=== PATIENT | male | born 1930 | race Caucasian/White ===

== ENCOUNTER 2018-02-08 14:48 | Emergency (ER) | payer MEDICARE, OTHER ==
[2018-02-08 15:22] LABS: Glucose,Whole Blood 119 mg/dL (75-99)
[2018-02-08 15:31] LABS: Basophils % (A) 0 %; Eosinophils # (A) 0.2 k/uL (0-0.7); Eosinophils % (A) 2 %; HCT 47.4 % (39.0-53.0); HGB 14.8 gm/dL (13.0-17.5); Lymphocytes # (A) 2.3 k/uL (1.0-4.8); Lymphocytes % (A) 30 %; MCH 29.2 pg (25.0-35.0); MCHC 31.2 g/dL (31.0-37.0); MCV 93.5 fL (80.0-100.0); Mean Platelet Volume 8.3; Monocytes # (A) 0.6 k/uL (0-1.0); Monocytes % (A) 7 %; Neutrophils # (A) 4.5 k/uL (1.3-7.7); Neutrophils % (A) 58 %; Platelet Count 172 k/uL (150-450); RBC 5.07 m/uL (4.30-5.90); RDW 13.1 % (11.5-15.5); WBC 7.8 k/uL (3.8-10.6)
[2018-02-08 15:44] LABS: Albumin 4.6 g/dL (3.5-5.0); Calcium 9.6 mg/dL (8.4-10.2); Total Bilirubin 1.2 mg/dL (0.2-1.3); Total Protein 7.6 g/dL (6.3-8.2)
--- NOTE | 2018-02-08 15:45 | ED ---
General Adult HPI - General Chief complaint: Neuro Symptoms/Deficit Stated complaint: Poss CVA Time Seen by Provider: 02/08/18 14:54 Source: patient, RN notes reviewed, old records reviewed Mode of arrival: wheelchair Limitations: no limitations - History of Present Illness Initial comments: 87-year-old male presenting for evaluation of left upper extremity and left lower extremity weakness as well as some gait instability. Patient is accompanied by his . She states that at approximately 1 PM the patient developed left arm weakness and tremor. This progressed to left lower extremity weakness along with gait instability. Patient nearly fell although his prevented him from full collapse. Patient denies any headache. Denies any numbness or paresthesias. 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 History of coronary artery disease status post bypass. He is currently on a daily aspirin. No anticoagulation. Denies any preceding symptoms prior to 1:00 today. Denies fever or chills. Denies chest pain or shortness of breath. Denies cough. Denies abdominal pain nausea vomiting. Symptoms are resolved at the time of my evaluation. - Related Data Home Medications Medication Instructions Recorded Confirmed Escitalopram [Lexapro] 10 mg PO HS 03/30/15 02/08/18 Losartan/Hydrochlorothiazide 1 tab PO HS 03/30/15 02/08/18 [Losartan-Hctz 50-12.5 mg Tab] Aspirin EC [Ecotrin] 325 mg PO HS 02/08/18 02/08/18 Atorvastatin [Lipitor] 40 mg PO HS 02/08/18 02/08/18 Multivitamins, Thera [Multivitamin 1 tab PO HS 02/08/18 02/08/18 (formulary)] Allergies Allergy/AdvReac Type Severity Reaction Status Date / Time No Known Allergies Allergy Verified 02/08/18 15:22 Review of Systems ROS Statement: Those systems with pertinent positive or pertinent negative responses have been documented in the HPI. ROS Other: All systems not noted in ROS Statement are negative. Past Medical History Past Medical History: Coronary Artery Disease (CAD), Cancer, CVA/TIA, Hearing Disorder / Deafness, Hyperlipidemia, Hypertension, Memory Impairment, Osteoarthritis (OA), Prostate Disorder, Skin Disorder Additional Past Medical History / Comment(s): per past medical hx 2013 hx cva/ tia unk date, skin cancer , CAD status post CABG as well as a left heart catheter physician 2013 that was nonobstructive, hypertension and hypertensive cardio vascular disease, hyperlipidemia, benign prostatic hypertrophy, vascular dementia, vitamin D deficiency, impotence of organic origin, dry skin, hypogonadism, major depressive disorder. History of Any Multi-Drug Resistant Organisms: None Reported Past Surgical History: Coronary Bypass/CABG Additional Past Surgical History / Comment(s): triple cagb 1999, heart cath 2013 -tx medically, leobardo cataracats, skin ca removed Past Anesthesia/Blood Transfusion Reactions: No Reported Reaction Past Psychological History: No Psychological Hx Reported Smoking Status: Former smoker Past Alcohol Use History: None Reported Past Drug Use History: None Reported - Past Family History Father Family Medical History: Dementia (Father at age of 82 from dementia) Mother Family Medical History: Cancer (Mother at age of 50 from some sort of cancer) Brother(s) Family Medical History: No Reported History (Patient had one brother who at age of 91 from old age) Sister(s) Family Medical History: Dementia (Patient has 2 sisters one of them is alive and well the other one from Alzheimer dementia.) General Exam Limitations: no limitations General appearance: alert, in no apparent distress Head exam: Present: atraumatic, normocephalic Eye exam: Present: other (Right pupil is irregular status post cataract surgery , left eye with corneal clouding and pupillary irregularity.) ENT exam: Present: normal exam Neck exam: Present: normal inspection. Absent: tenderness, meningismus Respiratory exam: Present: normal lung sounds bilaterally. Absent: respiratory distress, wheezes, rales Cardiovascular Exam: Present: regular rate, normal rhythm GI/Abdominal exam: Present: soft. Absent: distended, tenderness, guarding Extremities exam: Present: normal inspection Neurological exam: Present: alert, oriented X3, CN II-XII intact, normal gait, other (NIH 0). Absent: motor sensory deficit Psychiatric exam: Present: normal affect, normal mood Skin exam: Present: warm, dry, intact. Absent: cyanosis, diaphoretic Course Vital Signs 02/08/18 14:50 Temperature 98.2 F Pulse Rate 63 Respiratory 20 Rate Blood Pressure 142/69 O2 Sat by Pulse 97 Oximetry EKG Findings - EKG Comments: EKG Findings:: EKG: Sinus rhythm with sinus arrhythmia occasional PVC, no ST segment elevatio, rate of 60, [place] interval 206, QRS duration 88, QTC 400. Medical Decision Making - Medical Decision Making 87-year-old male presenting with left arm and left leg weakness. This was resolved at the time my evaluation. Symptoms were consistent with TIA. Patient does have history of TIA and CVA in the past. Head CT is obtained, shows bifrontal encephalomalacia and old lacunar infarcts, no intracranial hemorrhage or acute cranial process. Chest x-ray is negative, CBC, CMP unremarkable. Patient is instructed that these symptoms are likely related to TIA, he is informed that workup would include possible inpatient evaluation by neurology, ultrasound of the neck and heart. Patient is informed of the possibility that these symptoms may worsen. Despite this patient prefers outpatient follow-up. He is alert and oriented, his 's present. They are both agreeable with plan. He is already on aspirin, he will continue to take this medication. He will return with worsening or changing symptoms. He is given outpatient neurology follow-up. Diagnosis: TIA - Lab Data Result diagrams: 02/08/18 15:08 02/08/18 15:08 Lab Results 02/08/18 02/08/18 02/08/18 Range/Units 15:06 15:08 15:08 WBC 7.8 (3.8-10.6) k/uL RBC 5.07 (4.30-5.90) m/uL Hgb 14.8 (13.0-17.5) gm/dL Hct 47.4 (39.0-53.0) % MCV 93.5 (80.0-100.0) fL MCH 29.2 (25.0-35.0) pg MCHC 31.2 (31.0-37.0) g/dL RDW 13.1 (11.5-15.5) % Plt Count 172 (150-450) k/uL Neutrophils % 58 % Lymphocytes % 30 % Monocytes % 7 % Eosinophils % 2 % Basophils % 0 % Neutrophils # 4.5 (1.3-7.7) k/uL Lymphocytes # 2.3 (1.0-4.8) k/uL Monocytes # 0.6 (0-1.0) k/uL Eosinophils # 0.2 (0-0.7) k/uL Basophils # 0.0 (0-0.2) k/uL PT (9.0-12.0) sec INR (<1.2) APTT (22.0-30.0) sec Sodium (137-145) mmol/L Potassium (3.5-5.1) mmol/L Chloride (98-107) mmol/L Carbon Dioxide (22-30) mmol/L Anion Gap mmol/L BUN (9-20) mg/dL Creatinine (0.66-1.25) mg/dL Est GFR (CKD-EPI)AfAm (>60 ml/min/1.73 sqM) Est GFR (CKD-EPI)NonAf (>60 ml/min/1.73 sqM) Glucose (74-99) mg/dL POC Glucose (mg/dL) 119 H (75-99) mg/dL POC Glu Electrical Systems Designer ID Deanne Alvarez Calcium (8.4-10.2) mg/dL Total Bilirubin (0.2-1.3) mg/dL AST (17-59) U/L ALT (21-72) U/L Alkaline Phosphatase (38-126) U/L Total Creatine Kinase 67 (55-170) U/L CK-MB (CK-2) 1.3 (0.0-2.4) ng/mL CK-MB (CK-2) Rel Index 1.9 Troponin I 0.023 (0.000-0.034) ng/mL Total Protein (6.3-8.2) g/dL Albumin (3.5-5.0) g/dL 02/08/18 02/08/18 Range/Units 15:08 15:08 WBC (3.8-10.6) k/uL RBC (4.30-5.90) m/uL Hgb (13.0-17.5) gm/dL Hct (39.0-53.0) % MCV (80.0-100.0) fL MCH (25.0-35.0) pg MCHC (31.0-37.0) g/dL RDW (11.5-15.5) % Plt Count (150-450) k/uL Neutrophils % % Lymphocytes % % Monocytes % % Eosinophils % % Basophils % % Neutrophils # (1.3-7.7) k/uL Lymphocytes # (1.0-4.8) k/uL Monocytes # (0-1.0) k/uL Eosinophils # (0-0.7) k/uL Basophils # (0-0.2) k/uL PT 10.9 (9.0-12.0) sec INR 1.1 (<1.2) APTT 22.5 (22.0-30.0) sec Sodium 141 (137-145) mmol/L Potassium 5.0 (3.5-5.1) mmol/L Chloride 106 (98-107) mmol/L Carbon Dioxide 22 (22-30) mmol/L Anion Gap 13 mmol/L BUN 24 H (9-20) mg/dL Creatinine 0.94 (0.66-1.25) mg/dL Est GFR (CKD-EPI)AfAm 84 (>60 ml/min/1.73 sqM) Est GFR (CKD-EPI)NonAf 73 (>60 ml/min/1.73 sqM) Glucose 120 H (74-99) mg/dL POC Glucose (mg/dL) (75-99) mg/dL POC Glu Electrical Systems Designer ID Calcium 9.6 (8.4-10.2) mg/dL Total Bilirubin 1.2 (0.2-1.3) mg/dL AST 41 (17-59) U/L ALT 24 (21-72) U/L Alkaline Phosphatase 75 (38-126) U/L Total Creatine Kinase (55-170) U/L CK-MB (CK-2) (0.0-2.4) ng/mL CK-MB (CK-2) Rel Index Troponin I (0.000-0.034) ng/mL Total Protein 7.6 (6.3-8.2) g/dL Albumin 4.6 (3.5-5.0) g/dL Disposition Clinical Impression: Transient cerebral ischemia Disposition: HOME SELF-CARE Condition: Fair Instructions: Transient Ischemic Attack (ED) Additional Instructions: Please continue aspirin at home. Follow-up with primary care physician and neurology. Please return with worsening or changing symptoms. Is patient prescribed a controlled substance at d/c from ED?: No Referrals: Shanika Tiwari MD [Primary Care Provider] - 1-2 days Terese Chahal MD [STAFF PHYSICIAN] - 1-2 days Time of Disposition: 16:35
--- NOTE | 2018-02-08 15:46 | CT ---
EXAMINATION TYPE: CT brain wo con DATE OF EXAM: 02/08/2018 COMPARISON: 03/30/2015 HISTORY: Left sided weakness CT DLP: 1108.4 mGycm Automated exposure control for dose reduction was used. FINDINGS: There is bifrontal encephalomalacia with volume loss of the peripheral sulci. Left-sided encephalomal acia is new from the prior. Old lacunar injury seen of the left lentiform nucleus is present on the p rior. Right-sided basal ganglia calcifications are noted. No evidence of acute intracranial hemorrhag e, midline shift or mass effect. No suspicious extra-axial fluid collection. Osseous calvarium appear s intact with mild mucosal thickening of the left atrophic maxillary sinus. IMPRESSION: BIFRONTAL ENCEPHALOMALACIA FROM PRIOR INJURY AND OLD LACUNAR INJURIES. NO ACUTE INTRACRANIAL PROCESS.
--- NOTE | 2018-02-08 15:47 | XR ---
EXAMINATION TYPE: XR chest 2V DATE OF EXAM: 02/08/2018 COMPARISON: 09/02/2013 HISTORY: Altered mental status TECHNIQUE: Frontal and lateral views of the chest are obtained. FINDINGS: There is no focal air space opacity, pleural effusion, or pneumothorax seen. Post CABG kizzy nges of the chest are seen with cardiac enlargement. Pulmonary hyperinflation suggests underlying CO PD. Mild multilevel degenerative changes of the thoracic spine are noted. Osseous demineralization is seen. The osseous structures are intact. IMPRESSION: Chronic findings with no acute cardiopulmonary process.
[2018-02-08 16:07] LABS: Creatine Kinase MB 1.3 ng/mL (0.0-2.4); Troponin I 0.023 ng/mL (0.000-0.034)
[2018-02-08 16:18] LABS: INR 1.1 (<1.2); Partial Thromboplastin Time 22.5 sec (22.0-30.0); Prothrombin Time 10.9 sec (9.0-12.0)
[2018-02-08 16:50] VITALS: BP 122/72; PULSE 96; RESP 18; TEMP 98.5
== END 2018-02-08 16:48 | disposition home or self-care (01) ==
LOC: EC 14:48
DX: G45.9 Transient cerebral ischemic attack, unspecified (principal); G93.89 Other specified disorders of brain; I25.10 Atherosclerotic heart disease of native coronary artery without angina pectoris; E78.5 Hyperlipidemia, unspecified; I11.9 Hypertensive heart disease without heart failure; E55.9 Vitamin D deficiency, unspecified; F32.9 Major depressive disorder, single episode, unspecified; Z85.828 Personal history of other malignant neoplasm of skin; Z86.73 Personal history of transient ischemic attack (TIA), and cerebral infarction without residual deficits; Z95.1 Presence of aortocoronary bypass graft; Z95.818 Presence of other cardiac implants and grafts; Z87.891 Personal history of nicotine dependence; Z79.82 Long term (current) use of aspirin; Z79.899 Other long term (current) drug therapy
CPT/HCPCS: 36415; 70450; 71046; 80053; 82550; 82553; 84484; 85025; 85610; 85730; 93005; 99285

== ENCOUNTER → 2018-02-21 | Outpatient (CLI) | payer MEDICARE, OTHER ==
--- NOTE | 2018-02-21 08:12 | US ---
EXAMINATION TYPE: US carotid duplex BILAT DATE OF EXAM: 02/21/2018 COMPARISON: US 2014 CLINICAL HISTORY: G45.9 TIA. TIA, loss of vision in left eye. EXAM MEASUREMENTS: RIGHT: Peak Systolic Velocity (PSV) cm/sec ----- Right CCA: 72.2 ----- Right ICA: 100.7 ----- Right ECA: 122.8 ICA/CCA ratio: 1.4 RIGHT: End Diastole cm/sec ----- Right CCA: 13.9 ----- Right ICA: 26.5 ----- Right ECA: 0.0 LEFT: Peak Systolic Velocity (PSV) cm/sec ----- Left CCA: 82.6 ----- Left ICA: 123.4 ----- Left ECA: 121.8 ICA/CCA ratio: 1.5 LEFT: End Diastole cm/sec ----- Left CCA: 16.6 ----- Left ICA: 33.9 ----- Left ECA: 0.0 VERTEBRALS (direction of flow): Right Vertebral: Antegrade Left Vertebral: Antegrade Rhythm: Normal Bilateral intimal thickening, plaque bilateral bulb greater on right side, no elevated velocities, no significant stenosis. IMPRESSION: Mild degree of grayscale atheromatous plaquing with no sonographically evident hemodynam ically significant stenosis within either visualized carotid arterial system. The previously seen c ardiac arrhythmia 2014 is not appreciated on today's examination.
--- NOTE | 2018-02-21 08:32 | MR ---
EXAMINATION TYPE: MR brain wo/w con DATE OF EXAM: 02/21/2018 COMPARISON: CT brain 02/08/2018 HISTORY: Memory loss CONTRAST: Performed utilizing 7.5 mL intravenous Gadavist gadolinium contrast. TECHNIQUE: Multiplanar, multiecho imaging on a 3.0 Melanie magnet is performed through the brain. Stud y is performed within 24 hours of arrival to the hospital. The craniovertebral junction is normal. The pituitary is normal. Diffusion-weighted imaging is performed. No abnormal hyperintensity is present to suggest an acute i ntracranial infarct or acute ischemic change. Bilateral frontal parietal lobe watershed infarcts are present. These appear chronic. There is conflu ent periventricular white matter hypodensity, likely microvascular ischemic change.. Infarct or prior ischemic changes likely present as well. There is an irregular enhancing lesion within the superior left cerebellum. Series 602, image 10, ser ies 601 image 53. This measures approximately 1.1 x 0.8 cm. Metastatic lesion should be considered. P rimary lesion is not excluded. Diffusion-weighted imaging is hypointense in this region and infarct i s unlikely. Solitary multiple sclerosis would be unlikely.. No additional enhancing lesions are evide nt. Ventricles and sulci are prominent for the patient age. Mucosal retention cysts are within the left maxillary sinus. Mild mucosal thickening within ethmoid a ir cells. IMPRESSIONS: 1. Enhancing lesion within the superior left cerebellum. Evaluate for metastasis. Diffusion imaging s uggests infarct to be unlikely. 2. Chronic frontal parietal watershed infarcts bilaterally. 3. Periventricular white matter ischemic type changes. 4. Atrophy A Lynx level critical message alert has been initiated for Shanika Tiwari MD via the [employer] Critical Results System on 02/21/2018 8:29 AM. This message alert has been sent to Shanika Tiwari MD via the preferences provided by the clinician for the receipt of Radiology Critical Findings. Message ID [id number].
== END | disposition home or self-care (01) ==
LOC: RADMRIMAIN 06:45
PROVIDERS: ATTEND Internal Medicine
DX: G31.9 Degenerative disease of nervous system, unspecified (principal); I67.82 Cerebral ischemia; G93.89 Other specified disorders of brain; I65.29 Occlusion and stenosis of unspecified carotid artery
CPT/HCPCS: 93880; 70553; A9581

== ENCOUNTER → 2018-03-07 | Outpatient (CLI) | payer MEDICARE, OTHER ==
--- NOTE | 2018-03-08 11:50 | CT ---
EXAMINATION TYPE: CT ChestAbdPelvis wo/w con DATE OF EXAM: 03/07/2018 COMPARISON: Brain MR 02/21/[address] brain 02/08/2018 HISTORY: Disorder of brain and altered mental status, abnormal prior imaging study CT DLP: 3160 mGycm Automated exposure control for dose reduction was used. CONTRAST: CT scan of the chest, abdomen and pelvis is performed with Oral Contrast and without and with IV Cont rast, patient injected with 100 mL of Isovue 300. FINDINGS: Findings on the brain MRI are questioned as there is no direct axial pre and post contrast scan performed, precontrast scans correlated only with a sagittal T1 weighted image. There is suggest ion on the sagittal image of some increased signal at this level. No additional abnormal enhancing le sions are identified within the brain. LUNGS: Some interstitial changes are present within the lungs. No evident lung mass or pneumonia, no pleural effusion or pneumothorax. MEDIASTINUM: There are no greater than 1 cm hilar or mediastinal lymph nodes. No pericardial effusi on is seen. Coronary artery calcifications are present. Calcification is present at the aortic root. Patient is post median sternotomy. AORTA: No significant abnormality is seen. OTHER: No additional significant abnormality is seen. LIVER/GB: No significant abnormality is appreciated. PANCREAS: No significant abnormality is seen. SPLEEN: Hypodensity within the spleen measures 8 mm and is of questionable clinical significance. ADRENALS: No significant abnormality is seen. KIDNEYS: No significant abnormality is seen. REPRODUCTIVE ORGANS: The prostate is enlarged.. BOWEL: No significant abnormality is seen. Possible small hiatal hernia. FREE AIR: No Free Air visible. ASCITES: None seen. RETROPERITONEAL ADENOPATHY: No retroperitoneal adenopathy is seen. LYMPH NODES: No greater than 1 cm abdominal or pelvic lymph nodes are appreciated. URINARY BLADDER: There is a thickened wall likely due to chronic outlet obstruction. PELVIC ADENOPATHY: None visualized. OSSEOUS STRUCTURES: No significant abnormality is seen. Facet arthropathy, degenerative disc changes are present in the visualized spine. IMPRESSION: No abnormality evident to account for patient's brain abnormality, consider precontrast M RI axial scan through the brain for better evaluation as discussed above versus short interval follow -up. Additional findings above.
== END | disposition home or self-care (01) ==
LOC: RADCTMAIN 14:58
PROVIDERS: ATTEND Internal Medicine
DX: R91.8 Other nonspecific abnormal finding of lung field (principal); G93.9 Disorder of brain, unspecified
CPT/HCPCS: 82565; 84520; 71270; 74178; 36415; Q9967

== ENCOUNTER → 2018-07-03 | Outpatient (CLI) | payer MEDICARE, OTHER ==
[2018-07-03 16:11] LABS: LDL Cholesterol,Calculated 34.6 mg/dL (0.0-131.0); VLDL Calculation 12.4 mg/dL (5.00-40.00)
== END | disposition home or self-care (01) ==
LOC: LABWHC1 10:35
PROVIDERS: ATTEND Psychiatry & Neurology Pain Medicine
DX: I63.9 Cerebral infarction, unspecified (principal)
CPT/HCPCS: 36415; 80061

== ENCOUNTER 2019-04-25 07:09 | Emergency (ER) | payer MEDICARE, OTHER ==
[2019-04-25 07:19] VITALS: RESP 18
[2019-04-25 07:32] LABS: Glucose,Whole Blood 100 mg/dL (75-99)
[2019-04-25 07:59] LABS: ALT 25 U/L (21-72); AST 29 U/L (17-59); African American GFR (CKD) 65 (>60 ml/min/1.73 sqM); Albumin 4.2 g/dL (3.5-5.0); Alcohol <10 mg/dL; Alkaline Phosphatase 99 U/L (38-126); Anion Gap 12 mmol/L; Blood Urea Nitrogen 26 mg/dL (9-20); Calcium 9.4 mg/dL (8.4-10.2); Carbon Dioxide 27 mmol/L (22-30); Chloride 103 mmol/L (98-107); Creatine Kinase 437 U/L (55-170); Glucose 103 mg/dL (74-99); Magnesium 1.9 mg/dL (1.6-2.3); Potassium 3.9 mmol/L (3.5-5.1); Sodium 142 mmol/L (137-145); Total Bilirubin 0.7 mg/dL (0.2-1.3); Total Protein 7.1 g/dL (6.3-8.2)
--- NOTE | 2019-04-25 08:01 | ED ---
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 Patient himself states that he was dreaming that he was trapped and inability was going to be blown up. He states he was trying to escape sway wouldn't get caught in the [place]. He was brought in by police his was not currently present. No reports of any trauma no other information available at the time of the initial evaluation. MD Complaint: altered mental status, confusion - Related Data Home Medications Medication Instructions Recorded Confirmed Losartan/Hydrochlorothiazide 1 tab PO HS 03/30/15 04/25/19 [Losartan-Hctz 50-12.5 mg Tab] Multivitamins, Thera [Multivitamin 1 tab PO HS 02/08/18 04/25/19 (formulary)] Atorvastatin [Lipitor] 40 mg PO HS 04/25/19 04/25/19 Clopidogrel Bisulfate [Plavix] 75 mg PO HS 04/25/19 04/25/19 Donepezil [Aricept] 5 mg PO HS 04/25/19 04/25/19 Escitalopram [Lexapro] 10 mg PO HS 04/25/19 04/25/19 Allergies Allergy/AdvReac Type Severity Reaction Status Date / Time No Known Allergies Allergy Verified 04/25/19 08:51 Review of Systems ROS Statement: Those systems with pertinent positive or pertinent negative responses have been documented in the HPI. ROS Other: All systems not noted in ROS Statement are negative. Limitations: ROS unobtainable due to patients medical condition Past Medical History Past Medical History: Coronary Artery Disease (CAD), Cancer, CVA/TIA, Hearing Disorder / Deafness, Hyperlipidemia, Hypertension, Memory Impairment, Osteoarthritis (OA), Prostate Disorder, Skin Disorder Additional Past Medical History / Comment(s): per past medical hx 2013 hx cva/tia unk date, skin cancer 09, CAD status post CABG as well as a left heart catheter physician 2013 that was nonobstructive, hypertension and hypertensive cardio vascular disease, hyperlipidemia, benign prostatic hypertrophy, vascular dementia, vitamin D deficiency, impotence of organic origin, dry skin, hypogonadism, major depressive disorder. History of Any Multi-Drug Resistant Organisms: None Reported Past Surgical History: Coronary Bypass/CABG Additional Past Surgical History / Comment(s): triple cagb 1999, heart cath 2013 -tx medically, leobardo cataracats, skin ca removed Past Anesthesia/Blood Transfusion Reactions: No Reported Reaction Past Psychological History: No Psychological Hx Reported Smoking Status: Former smoker Past Alcohol Use History: None Reported Past Drug Use History: None Reported - Past Family History Father Family Medical History: Dementia (Father at age of 82 from dementia) Mother Family Medical History: Cancer (Mother at age of 50 from some sort of cancer) Brother(s) Family Medical History: No Reported History (Patient had one brother who at age of 91 from old age) Sister(s) Family Medical History: Dementia (Patient has 2 sisters one of them is alive and well the other one from Alzheimer dementia.) General Exam - General Exam Comments Initial Comments: This is a well-developed well-nourished awake alert pleasant female who does demonstrate some flight of ideas he is aware of person place and time Limitations: altered mental status General appearance: alert, in no apparent distress Head exam: Present: atraumatic, normocephalic, normal inspection Eye exam: Present: normal appearance, PERRL, EOMI. Absent: scleral icterus, conjunctival injection, periorbital swelling ENT exam: Present: mucous membranes dry Neck exam: Present: normal inspection. Absent: tenderness, meningismus, lymphadenopathy Respiratory exam: Present: normal lung sounds bilaterally. Absent: respiratory distress, wheezes, rales, rhonchi, stridor Cardiovascular Exam: Present: regular rate, normal rhythm, normal heart sounds. Absent: systolic murmur, diastolic murmur, rubs, gallop, clicks GI/Abdominal exam: Present: soft, normal bowel sounds. Absent: distended, tenderness, guarding, rebound, rigid Extremities exam: Present: normal inspection, full ROM, normal capillary refill. Absent: tenderness, pedal edema, joint swelling, calf tenderness Back exam: Present: normal inspection Neurological exam: Present: alert, oriented X3, CN II-XII intact Psychiatric exam: Present: normal affect, normal mood Skin exam: Present: warm, dry, intact, normal color. Absent: rash Course Vital Signs 04/25/19 04/25/19 07:14 08:44 Temperature 97.6 F 98.2 F Pulse Rate 86 62 Respiratory 18 18 Rate Blood Pressure 162/70 124/70 O2 Sat by Pulse 96 97 Oximetry - Reevaluation(s) Reevaluation #1: 04/25/19 09:57 Patient's resting comfortably he is medically cleared for a psychiatric evaluation. Medical Decision Making - Medical Decision Making Patient was evaluated by psychiatric service and will be discharged with referrals. Recommendations for changing medication from Lexapro to valproic acid. The family is in agreement - Lab Data Result diagrams: 04/25/19 07:30 04/25/19 07:30 Lab Results 04/25/19 04/25/19 04/25/19 Range/Units 07:30 07:30 07:30 WBC (3.8-10.6) k/uL RBC (4.30-5.90) m/uL Hgb (13.0-17.5) gm/dL Hct (39.0-53.0) % MCV (80.0-100.0) fL MCH (25.0-35.0) pg MCHC (31.0-37.0) g/dL RDW (11.5-15.5) % Plt Count (150-450) k/uL Neutrophils % % Lymphocytes % % Monocytes % % Eosinophils % % Basophils % % Neutrophils # (1.3-7.7) k/uL Lymphocytes # (1.0-4.8) k/uL Monocytes # (0-1.0) k/uL Eosinophils # (0-0.7) k/uL Basophils # (0-0.2) k/uL Sodium 142 (137-145) mmol/L Potassium 3.9 (3.5-5.1) mmol/L Chloride 103 (98-107) mmol/L Carbon Dioxide 27 (22-30) mmol/L Anion Gap 12 mmol/L BUN 26 H (9-20) mg/dL Creatinine 1.16 (0.66-1.25) mg/dL Est GFR (CKD-EPI)AfAm 65 (>60 ml/min/1.73 sqM) Est GFR (CKD-EPI)NonAf 56 (>60 ml/min/1.73 sqM) Glucose 103 H (74-99) mg/dL POC Glucose (mg/dL) 100 H (75-99) mg/dL POC Glu Photostatic Copy Maker ID Brandi Triplett Calcium 9.4 (8.4-10.2) mg/dL Magnesium 1.9 (1.6-2.3) mg/dL Total Bilirubin 0.7 (0.2-1.3) mg/dL AST 29 (17-59) U/L ALT 25 (21-72) U/L Alkaline Phosphatase 99 (38-126) U/L Ammonia <9 (<30) umol/L Creatine Kinase 437 H (55-170) U/L Troponin I (0.000-0.034) ng/mL Total Protein 7.1 (6.3-8.2) g/dL Albumin 4.2 (3.5-5.0) g/dL Lipase 239 (23-300) U/L Urine Color Urine Appearance (Clear) Urine pH (5.0-8.0) Ur Specific [place] (1.001-1.035) Urine Protein (Negative) Urine Glucose (UA) (Negative) Urine Ketones (Negative) Urine Blood (Negative) Urine Nitrite (Negative) Urine Bilirubin (Negative) Urine Urobilinogen (<2.0) mg/dL Ur Leukocyte Esterase (Negative) Urine RBC (0-5) /hpf Urine WBC (0-5) /hpf Urine Mucus (None) /hpf Urine Opiates Screen (NotDetected) Ur Oxycodone Screen (NotDetected) Urine Methadone Screen (NotDetected) Ur Propoxyphene Screen (NotDetected) Ur Barbiturates Screen (NotDetected) U Tricyclic Antidepress (NotDetected) Ur Phencyclidine Scrn (NotDetected) Ur Amphetamines Screen (NotDetected) U Methamphetamines Scrn (NotDetected) U Benzodiazepines Scrn (NotDetected) Urine Cocaine Screen (NotDetected) U Marijuana (THC) Screen (NotDetected) Serum Alcohol <10 mg/dL 04/25/19 04/25/19 04/25/19 Range/Units 07:30 07:30 08:35 WBC 8.0 (3.8-10.6) k/uL RBC 4.78 (4.30-5.90) m/uL Hgb 14.8 (13.0-17.5) gm/dL Hct 45.2 (39.0-53.0) % MCV 94.4 (80.0-100.0) fL MCH 30.9 (25.0-35.0) pg MCHC 32.8 (31.0-37.0) g/dL RDW 13.8 (11.5-15.5) % Plt Count 201 (150-450) k/uL Neutrophils % 54 % Lymphocytes % 33 % Monocytes % 7 % Eosinophils % 4 % Basophils % 1 % Neutrophils # 4.3 (1.3-7.7) k/uL Lymphocytes # 2.6 (1.0-4.8) k/uL Monocytes # 0.6 (0-1.0) k/uL Eosinophils # 0.3 (0-0.7) k/uL Basophils # 0.0 (0-0.2) k/uL Sodium (137-145) mmol/L Potassium (3.5-5.1) mmol/L Chloride (98-107) mmol/L Carbon Dioxide (22-30) mmol/L Anion Gap mmol/L BUN (9-20) mg/dL Creatinine (0.66-1.25) mg/dL Est GFR (CKD-EPI)AfAm (>60 ml/min/1.73 sqM) Est GFR (CKD-EPI)NonAf (>60 ml/min/1.73 sqM) Glucose (74-99) mg/dL POC Glucose (mg/dL) (75-99) mg/dL POC Glu Photostatic Copy Maker ID Calcium (8.4-10.2) mg/dL Magnesium (1.6-2.3) mg/dL Total Bilirubin (0.2-1.3) mg/dL AST (17-59) U/L ALT (21-72) U/L Alkaline Phosphatase (38-126) U/L Ammonia (<30) umol/L Creatine Kinase (55-170) U/L Troponin I 0.019 (0.000-0.034) ng/mL Total Protein (6.3-8.2) g/dL Albumin (3.5-5.0) g/dL Lipase (23-300) U/L Urine Color Yellow Urine Appearance Clear (Clear) Urine pH 6.0 (5.0-8.0) Ur Specific [place] 1.023 (1.001-1.035) Urine Protein 1+ H (Negative) Urine Glucose (UA) Negative (Negative) Urine Ketones Negative (Negative) Urine Blood Negative (Negative) Urine Nitrite Negative (Negative) Urine Bilirubin Negative (Negative) Urine Urobilinogen <2.0 (<2.0) mg/dL Ur Leukocyte Esterase Negative (Negative) Urine RBC <1 (0-5) /hpf Urine WBC 1 (0-5) /hpf Urine Mucus Occasional H (None) /hpf Urine Opiates Screen Not Detected (NotDetected) Ur Oxycodone Screen Not Detected (NotDetected) Urine Methadone Screen Not Detected (NotDetected) Ur Propoxyphene Screen Not Detected (NotDetected) Ur Barbiturates Screen Not Detected (NotDetected) U Tricyclic Antidepress Not Detected (NotDetected) Ur Phencyclidine Scrn Not Detected (NotDetected) Ur Amphetamines Screen Not Detected (NotDetected) U Methamphetamines Scrn Not Detected (NotDetected) U Benzodiazepines Scrn Not Detected (NotDetected) Urine Cocaine Screen Not Detected (NotDetected) U Marijuana (THC) Screen Not Detected (NotDetected) Serum Alcohol mg/dL - EKG Data -: EKG Interpreted by Me EKG shows normal: sinus rhythm (Sinus rhythm with sinus arrhythmia with first- degree AV block ventricular rate 62 FL interval 234 QRS 90 QT since QTC 410/[address] configuration) - Radiology Data Radiology results: report reviewed (I did review the imaging and report no acute findings. CT does show evidence of encephalomalacia), image reviewed Disposition Clinical Impression: Dementia, Dehydration Disposition: HOME SELF-CARE Condition: Good Instructions (If sedation given, give patient instructions): Dementia (ED), Dehydration (ED) Is patient prescribed a controlled substance at d/c from ED?: No Referrals: Shanika Tiwari MD [Primary Care Provider] - 1-2 days
--- NOTE | 2019-04-25 08:01 | CT ---
EXAMINATION TYPE: CT brain wo con DATE OF EXAM: 04/25/2019 COMPARISON: Previous study dated 02/08/2018. HISTORY: Altered mental status CT DLP: 1055.4 mGycm Automated exposure control for dose reduction was used. FINDINGS: There are areas of encephalomalacia involving the frontal lobes bilaterally. This is unchanged from p revious. Central structures are midline. There is no evidence of hydrocephalus. No acute focal lesion, mass ef fect or midline shift is seen. I do not see evidence of intracranial blood. There is mild physiologic calcification of the right basal ganglia. Visualized portions of the paranasal sinuses and mastoids are clear. The bony calvarium is intact. IMPRESSION: 1. NO ACUTE INTRACRANIAL ABNORMALITY. 2. STABLE AREAS OF ENCEPHALOMALACIA INVOLVING BOTH FRONTAL LOBES.
--- NOTE | 2019-04-25 08:02 | XR ---
EXAMINATION TYPE: XR chest 2V DATE OF EXAM: 04/25/2019 HISTORY: Confusion. REFERENCE: Previous study dated 02/08/2018. FINDINGS: There has been a midline sternotomy. The lungs are overinflated. Scarring in the left lung base. Lungs otherwise clear. Pleural space are clear. The heart is not enlarged. IMPRESSION: 1. COPD. 2. CHRONIC SCARRING, LEFT LUNG BASE.
[2019-04-25 08:07] LABS: Basophils % (A) 1 %; Eosinophils # (A) 0.3 k/uL (0-0.7); Eosinophils % (A) 4 %; HCT 45.2 % (39.0-53.0); HGB 14.8 gm/dL (13.0-17.5); Lymphocytes # (A) 2.6 k/uL (1.0-4.8); Lymphocytes % (A) 33 %; MCH 30.9 pg (25.0-35.0); MCHC 32.8 g/dL (31.0-37.0); MCV 94.4 fL (80.0-100.0); Mean Platelet Volume 7.6; Monocytes # (A) 0.6 k/uL (0-1.0); Monocytes % (A) 7 %; Neutrophils # (A) 4.3 k/uL (1.3-7.7); Neutrophils % (A) 54 %; Platelet Count 201 k/uL (150-450); RBC 4.78 m/uL (4.30-5.90); RDW 13.8 % (11.5-15.5)
[2019-04-25] MEDS ORDERED: SODIUM CHLORIDE 0.9% 1,000 ML IV STA (08:19)
[2019-04-25] MEDS ORDERED: SODIUM CHLORIDE 0.9% 500 ML 500 ML IV STA (08:19)
[2019-04-25 09:08] LABS: Appearance,Urine Clear (Clear); Bilirubin,Urine Negative (Negative); Blood,Urine Negative (Negative); Color,Urine Yellow; Glucose,Urine (UA) Negative (Negative); Ketones,Urine Negative (Negative); Leukocyte Esterase,Urine Negative (Negative); Mucus,Urine Occasional /hpf; Nitrite,Urine Negative (Negative); Protein,Urine 1+ (Negative); RBC,Urine <1 /hpf (0-5); Specific Gravity,Urine 1.023 (1.001-1.035); Urobilinogen,Urine <2.0 mg/dL (<2.0)
[2019-04-25 09:13] LABS: Amphetamine Screen,Urine Not Detected (NotDetected); Barbiturate Screen,Urine Not Detected (NotDetected); Benzodiazepines Screen,Urine Not Detected (NotDetected); Cocaine Screen,Urine Not Detected (NotDetected); Methadone Screen, Urine Not Detected (NotDetected); Opiate Screen,Urine Not Detected (NotDetected); Oxycodone Screen, Urine Not Detected (NotDetected); Phencyclidine Screen,Urine Not Detected (NotDetected); Tricyclic Antidepressant,Urine Not Detected (NotDetected); Urn Cannabinoid Scrn Not Detected (NotDetected)
[2019-04-25 12:28] VITALS: BP 122/78; PULSE 67; TEMP 98.1
== END 2019-04-25 12:28 | disposition home or self-care (01) ==
LOC: EC 07:09
DX: F01.50 Vascular dementia, unspecified severity, without behavioral disturbance, psychotic disturbance, mood disturbance, and anxiety (principal); E86.0 Dehydration; I25.10 Atherosclerotic heart disease of native coronary artery without angina pectoris; E78.5 Hyperlipidemia, unspecified; I10 Essential (primary) hypertension; F32.9 Major depressive disorder, single episode, unspecified; Z79.02 Long term (current) use of antithrombotics/antiplatelets; Z79.899 Other long term (current) drug therapy; Z95.1 Presence of aortocoronary bypass graft; Z87.891 Personal history of nicotine dependence; Z86.73 Personal history of transient ischemic attack (TIA), and cerebral infarction without residual deficits; Z85.828 Personal history of other malignant neoplasm of skin
CPT/HCPCS: 36415; 93005; 80053; 82140; 82550; 83690; 83735; 84484; 85025; 81001; 80306; 71046; 70450; 99285; 96360; 96361 ×3; G0480; 80320

== ENCOUNTER 2019-06-17 01:16 | Emergency (ER) | payer MEDICARE ==
[2019-06-17 01:31] VITALS: BP 131/58; PULSE 58; RESP 17; TEMP 97.9
[2019-06-17] MEDS ORDERED: DIPH,PERTUS(ACELL)TETVAC-LF 0.5 ML VIAL IM ONE (01:44)
[2019-06-17] MEDS ORDERED: AMOXIC-POT CLAV 875MG STARTER 2 EACH TABLET PO STA (01:49)
[2019-06-17] MEDS ORDERED: AMOXIC-POT CLAV 875-125MG 1 EACH TAB PO STA (01:50)
--- NOTE | 2019-06-17 02:13 | ED ---
General Adult HPI - General Source: patient, RN notes reviewed, old records reviewed Mode of arrival: ambulatory Limitations: no limitations <Eliceo Oscar - Last Filed: 06/17/19 02:07> <Estela Parra - Last Filed: 06/17/19 02:42> - General Chief complaint: Animal Bite Stated complaint: dog bite Time Seen by Provider: 06/17/19 01:33 - History of Present Illness Initial comments: 88-year-old male patient presents to the chief complaint of dog bite. Patient reports that he has a 25 pound cocker spaniel type dog which is blind. Patient reportedly tried to tug on the dog to come inside and may have startled the dog. Patient works the dog turned around and bit him in the right hand. Patient has an abrasion than a small laceration on the dorsal aspect of the hand. Does not date of last tetanus. Dog is up-to-date on all shots. Denies any other complaints. Systemic: Pt denies fatigue, fever/chills, rash. Pt denies weakness, night sweats, weight loss. Neuro: Pt denies headache, visual disturbances, syncope or pre-syncope. HEENT: Pt denies ocular discharge or irritation, otalgia, rhinorrhea, pharyngitis or notable lymphadenopathy. Cardiopulmonary: Pt denies chest pain, SOB, heart palpitations, dyspnea on exertion. Abdominal/GI: Pt denies abdominal pain, n/v/d. : Pt denies dysuria, burning w/ urination, frequency/urgency. Denies new onset urinary or bowel incontinence. MSK: Pt denies myalgia, loss of strength or function in extremities. Neuro: Pt denies new onset weakness, paresthesias. (Eliceo Oscar) - Related Data Home Medications Medication Instructions Recorded Confirmed Losartan/Hydrochlorothiazide 1 tab PO HS 03/30/15 04/25/19 [Losartan-Hctz 50-12.5 mg Tab] Multivitamins, Thera [Multivitamin 1 tab PO HS 02/08/18 04/25/19 (formulary)] Atorvastatin [Lipitor] 40 mg PO HS 04/25/19 04/25/19 Clopidogrel Bisulfate [Plavix] 75 mg PO HS 04/25/19 04/25/19 Donepezil [Aricept] 5 mg PO HS 04/25/19 04/25/19 Escitalopram [Lexapro] 10 mg PO HS 04/25/19 04/25/19 Previous Rx's Medication Instructions Recorded Amoxicillin/Potassium Clav 1 each PO Q12HR 10 Days #20 tab 06/17/19 [Augmentin 875-125 Tablet] Allergies Allergy/AdvReac Type Severity Reaction Status Date / Time No Known Allergies Allergy Verified 04/25/19 08:51 Review of Systems ROS Other: All systems not noted in ROS Statement are negative. <Eliceo Oscar - Last Filed: 06/17/19 02:07> ROS Other: All systems not noted in ROS Statement are negative. <Estela Parra - Last Filed: 06/17/19 02:42> ROS Statement: Those systems with pertinent positive or pertinent negative responses have been documented in the HPI. Past Medical History Past Medical History: Coronary Artery Disease (CAD), Cancer, CVA/TIA, Hearing Disorder / Deafness, Hyperlipidemia, Hypertension, Memory Impairment, Osteoarthritis (OA), Prostate Disorder, Skin Disorder Additional Past Medical History / Comment(s): per past medical hx 2013 hx cva/tia unk date, skin cancer , CAD status post CABG as well as a left heart catheter physician 2013 that was nonobstructive, hypertension and hypertensive cardio vascular disease, hyperlipidemia, benign prostatic hypertrophy, vascular dementia, vitamin D deficiency, impotence of organic origin, dry skin, hypogonadism, major depressive disorder. History of Any Multi-Drug Resistant Organisms: None Reported Past Surgical History: Coronary Bypass/CABG Additional Past Surgical History / Comment(s): triple cagb 1999, heart cath 2013 -tx medically, leobardo cataracats, skin ca removed Past Anesthesia/Blood Transfusion Reactions: No Reported Reaction Past Psychological History: No Psychological Hx Reported Smoking Status: Former smoker Past Alcohol Use History: None Reported Past Drug Use History: None Reported - Past Family History Father Family Medical History: Dementia (Father at age of 82 from dementia) Mother Family Medical History: Cancer (Mother at age of 50 from some sort of cancer) Brother(s) Family Medical History: No Reported History (Patient had one brother who at age of 91 from old age) Sister(s) Family Medical History: Dementia (Patient has 2 sisters one of them is alive and well the other one from Alzheimer dementia.) <Eliceo Oscar - Last Filed: 06/17/19 02:07> General Exam Limitations: no limitations <Eliceo Oscar - Last Filed: 06/17/19 02:07> - General Exam Comments Initial Comments: Constitutional: NAD, AOX3, Pt has pleasant affect. HEENT: NC/AT, trachea midline, neck supple, no lymphadenopathy. Posterior pharynx non erythematous, without exudates. External ears appear normal, without discharge. Mucous membranes moist. Eyes PERRLA, EOM intact. There is no scleral icterus. No pallor noted. Cardiopulmonary: RRR, no murmurs, rubs or gallops, no JVD noted. Lungs CTAB in anterior and posterior rocha. No peripheral edema. Abdominal exam: Abdomen soft and non-distended. Abdomen non-tender to palpation in all 4 quadrants. Bowel sounds active in LLQ. No hepatosplenomegaly. No ecchymosis Neuro: CN II-XII grossly intact. No nuchal rigidity. No raccon eyes, no fitch sign, no hemotympanum. No cervical spinal tenderness. MSK: 2 x 2 centimeter abrasion dorsal aspect of right hand. 2 cm superficial laceration. Irrigated with 1 L normal saline, dressed. 2cm laceration loosely approximately one Steri-Stripped by Dr. Parra. No posterior calf tenderness bilaterally, homans sign negative bilaterally. Posterior tibialis and radial pulse +2 bilaterally. Sensation intact in upper and lower extremities. Full active ROM in upper and lower extremities, 5/5 stregnth. (Eliceo Oscar) Course Vital Signs 06/17/19 01:28 Temperature 97.9 F Pulse Rate 58 L Respiratory 17 Rate Blood Pressure 131/58 O2 Sat by Pulse 100 Oximetry Procedures - Laceration Laceration #1 Consent Obtained: verbal consent Indication: laceration Site: hand (2cm ) Size (cm): 2 Description: linear Depth: simple, single layer Type of Sutures: other (steristrsimone (1) ) Patient Tolerated Procedure: well, no complications <Eliceo Oscar - Last Filed: 06/17/19 02:07> Medical Decision Making <Eliceo Oscar - Last Filed: 06/17/19 02:07> <Estela Parra - Last Filed: 06/17/19 02:42> - Medical Decision Making 80-year-old male patient presents the chief complaint of dog bite. Patient vital signs stable, afebrile. Physical exam displayed a small abrasion, superficial laceration. Irrigated with 1 L normal saline. Patient declined x- rays. Full active range of motion of hand, neurovascularly intact. There is a approximately one Steri-Strip. Patient discharged with Augmentin and return precautions. Case discussed and pt seen by Dr. Parra. (Eliceo Oscar) I personally saw and evaluated patient. Wounds had been cleansed and irrigated thoroughly, skin tears were repaired with Steri-Strips and dressed. Wound care was discussed with patient at bedside. Patient was discharged home in stable condition. (Estela Parra) Disposition Is patient prescribed a controlled substance at d/c from ED?: No <Eliceo Oscar - Last Filed: 06/17/19 02:07> <Estela Parra - Last Filed: 06/17/19 02:42> Clinical Impression: Dog bite Disposition: HOME SELF-CARE Condition: Stable Instructions (If sedation given, give patient instructions): Animal Bite (ED) Additional Instructions: Patient to adhere to previously discussed treatment plan and will take medication(s) as directed. Patient to follow up with PCP in 1-2 days. Patient to return to ED if symptoms do not improve. Please return to ED if these signs or symptoms occur, new signs or symptoms develop or if condition worsens in anyway. Prescriptions: Amoxicillin/Potassium Clav [Augmentin 875-125 Tablet] 1 each PO Q12HR 10 Days #20 tab Referrals: Shanika Tiwari MD [Primary Care Provider] - 1-2 days
== END 2019-06-17 02:25 | disposition home or self-care (01) ==
LOC: EC 01:16
DX: S60.571A Other superficial bite of hand of right hand, initial encounter (principal); I25.10 Atherosclerotic heart disease of native coronary artery without angina pectoris; I11.9 Hypertensive heart disease without heart failure; E78.5 Hyperlipidemia, unspecified; H91.90 Unspecified hearing loss, unspecified ear; F01.50 Vascular dementia, unspecified severity, without behavioral disturbance, psychotic disturbance, mood disturbance, and anxiety; F32.9 Major depressive disorder, single episode, unspecified; Z87.891 Personal history of nicotine dependence; Z79.02 Long term (current) use of antithrombotics/antiplatelets; Z79.899 Other long term (current) drug therapy; Z86.73 Personal history of transient ischemic attack (TIA), and cerebral infarction without residual deficits; Z85.828 Personal history of other malignant neoplasm of skin; Z95.1 Presence of aortocoronary bypass graft; Z95.818 Presence of other cardiac implants and grafts; Z98.890 Other specified postprocedural states; Z23 Encounter for immunization; W54.0XXA Bitten by dog, initial encounter; Y93.89 Activity, other specified; Z53.20 Procedure and treatment not carried out because of patient's decision for unspecified reasons
CPT/HCPCS: 90471; 90715; 99283

== ENCOUNTER 2019-09-25 17:59 | Emergency (ER) | payer MEDICARE ==
[2019-09-25 18:05] VITALS: BP 132/53; PULSE 67; RESP 65; TEMP 97.6
[2019-09-25] MEDS ORDERED: PROPARACAINE 0.5% OPHTH DROPS 15 ML BTL LEFT EYE STA (18:19)
[2019-09-25] MEDS ORDERED: FLUORESCEIN STRIPS 1 MG STRIP LEFT EYE ONE (18:20)
--- NOTE | 2019-09-25 18:22 | ED ---
Eye Problem HPI - General Chief complaint: Eye Problems Stated complaint: eye pain/pressure Time Seen by Provider: 09/25/19 18:07 Source: patient Mode of arrival: ambulatory Limitations: no limitations - History of Present Illness Initial comments: 89-year-old male patient presents to the emergency department today for evaluation of left eye discomfort. Patient states her last 2-3 days he has felt like something is in his eye. States that there is a scratching sensation especially when he closes eyelid. Patient does have decreased vision to the le ft eye on a regular basis, denies any change to this vision. Denies any fever or chills. Denies any known injury. Patient does see an scrap iron cutter regularly for cataracts. Patient denies any recent rash, fever, chills, cough, shortness of breath, chest pain, abdominal pain, nausea, vomiting, diarrhea, constipation, back pain, numbness, tingling, dizziness, weakness, hematuria, dysuria, urinary urgency, urinary frequency, headache, or any other complaints. - Related Data Home Medications Medication Instructions Recorded Confirmed Losartan/Hydrochlorothiazide 1 tab PO HS 03/30/15 04/25/19 [Losartan-Hctz 50-12.5 mg Tab] Multivitamins, Thera [Multivitamin 1 tab PO HS 02/08/18 04/25/19 (formulary)] Atorvastatin [Lipitor] 40 mg PO HS 04/25/19 04/25/19 Clopidogrel Bisulfate [Plavix] 75 mg PO HS 04/25/19 04/25/19 Donepezil [Aricept] 5 mg PO HS 04/25/19 04/25/19 Escitalopram [Lexapro] 10 mg PO HS 04/25/19 04/25/19 Previous Rx's Medication Instructions Recorded Amoxicillin/Potassium Clav 1 each PO Q12HR 10 Days #20 tab 06/17/19 [Augmentin 875-125 Tablet] Allergies Allergy/AdvReac Type Severity Reaction Status Date / Time No Known Allergies Allergy Verified 09/25/19 18:05 Review of Systems ROS Statement: Those systems with pertinent positive or pertinent negative responses have been documented in the HPI. ROS Other: All systems not noted in ROS Statement are negative. Past Medical History Past Medical History: Coronary Artery Disease (CAD), Cancer, CVA/TIA, Hearing Disorder / Deafness, Hyperlipidemia, Hypertension, Memory Impairment, Osteo arthritis (OA), Prostate Disorder, Skin Disorder Additional Past Medical History / Comment(s): per past medical hx 2013 hx cva/tia unk date, skin cancer , CAD status post CABG as well as a left heart catheter physician 2013 that was nonobstructive, hypertension and hypertensive cardio vascular disease, hyperlipidemia, benign prostatic hypertrophy, vascular dementia, vitamin D deficiency, impotence of organic origin, dry skin, hypogonadism, major depressive disorder. History of Any Multi-Drug Resistant Organisms: None Reported Past Surgical History: Coronary Bypass/CABG Additional Past Surgical History / Comment(s): triple cagb 1999, heart cath 2013 -tx medically, leobardo cataracats, skin ca removed Past Anesthesia/Blood Transfusion Reactions: No Reported Reaction Past Psychological History: No Psychological Hx Reported Smoking Status: Former smoker Past Alcohol Use History: None Reported Past Drug Use History: None Reported - Past Family History Father Family Medical History: Dementia (Father at age of 82 from dementia) Mother Family Medical History: Cancer (Mother at age of 50 from some sort of cancer) Brother(s) Family Medical History: No Reported History (Patient had one brother who at age of 91 from old age) Sister(s) Family Medical History: Dementia (Patient has 2 sisters one of them is alive and well the other one from Alzheimer dementia.) General Exam Limitations: no limitations General appearance: alert, in no apparent distress, other (This is a well- developed, well-nourished elderly female patient in no acute distress. Vital signs upon presentation are temperature 97.6F, pulse 67, respirations 20, blood pressure 132/53, pulse ox 97% on room air.) Eye exam: Present: PERRL, EOMI, other (Clouding of the left cornea. Mild conjunctival injection. Clear tearing. Fluorescein stain with Wood's lamp examination was performed, there is evidence for a large corneal abrasion to the left cornea at approximately 9:00.). Absent: scleral icterus, conjunctival injection, periorbital swelling ENT exam: Present: normal exam, normal oropharynx, mucous membranes moist Respiratory exam: Present: normal lung sounds bilaterally. Absent: respiratory distress, wheezes, rales, rhonchi, stridor Cardiovascular Exam: Present: regular rate, normal rhythm, normal heart sounds. Absent: systolic murmur, diastolic murmur, rubs, gallop, clicks Neurological exam: Present: alert, oriented X3, CN II-XII intact Psychiatric exam: Present: normal affect, normal mood Skin exam: Present: warm, dry, intact, normal color. Absent: rash Course Vital Signs 09/25/19 18:01 Temperature 97.6 F Pulse Rate 67 Respiratory 65 H Rate Blood Pressure 132/53 O2 Sat by Pulse 97 Oximetry Medical Decision Making - Medical Decision Making 89-year-old male patient presents to the emergency department today for evaluation of left eye discomfort. Patient states that over the last couple of days. Physical examination did reveal mild conjunctival injection with clear tearing to the left eye. Fluorescein stain with Wood's lamp examination was pe rformed and did reveal a corneal abrasion. Patient be treated with tobramycin drops. He is instructed to follow-up with his scrap iron cutter for further evaluation as soon as possible. Return parameters were discussed in detail. He verbalizes understanding and agrees with this plan. Disposition Clinical Impression: Left corneal abrasion Disposition: HOME SELF-CARE Condition: Good Instructions (If sedation given, give patient instructions): Corneal Abrasion (ED) Additional Instructions: Follow-up with your scrap iron cutter for further evaluation as soon as possible. Use eye drops 1 drop to the left eye 4 times daily while awake. Return to the emergency department immediately for any new, worsening, or concerning symptoms. Is patient prescribed a controlled substance at d/c from ED?: No Referrals: Shanika Tiwari MD [Primary Care Provider] - 1-2 days Time of Disposition: 18:44
[2019-09-25] MEDS ORDERED: TOBRAMYCIN 0.3% OPHTH DROPS 5 ML BTL LEFT EYE STA (18:42)
== END 2019-09-25 19:10 | disposition home or self-care (01) ==
LOC: EC 17:59
DX: S05.02XA Injury of conjunctiva and corneal abrasion without foreign body, left eye, initial encounter (principal); H54.7 Unspecified visual loss; I25.10 Atherosclerotic heart disease of native coronary artery without angina pectoris; H91.90 Unspecified hearing loss, unspecified ear; E78.5 Hyperlipidemia, unspecified; I10 Essential (primary) hypertension; F01.50 Vascular dementia, unspecified severity, without behavioral disturbance, psychotic disturbance, mood disturbance, and anxiety; F32.9 Major depressive disorder, single episode, unspecified; Z87.891 Personal history of nicotine dependence; Z79.02 Long term (current) use of antithrombotics/antiplatelets; Z79.899 Other long term (current) drug therapy; Z86.73 Personal history of transient ischemic attack (TIA), and cerebral infarction without residual deficits; Z85.828 Personal history of other malignant neoplasm of skin; Z95.1 Presence of aortocoronary bypass graft; Z98.890 Other specified postprocedural states; X58.XXXA Exposure to other specified factors, initial encounter
CPT/HCPCS: 99283

== ENCOUNTER → 2020-05-23 | Outpatient (CLI) | payer MEDICARE ==
--- NOTE | 2020-05-25 13:13 | P.ARTDOP ---
Arterial Doppler LOWER EXTREMITY ARTERIAL DOPPLER: DATE OF SERVICE: 05/23/2020 Reason for study: Suspected PVD. Doppler waveforms: Multiphasic bilaterally throughout. Pulse volume recording: []. Pressure gradients: None. Ankle-brachial indices: Greater than 1 bilaterally. Toe brachial indices: 0.69 on the right, 0.37 on the left Impression: The right side is normal. The only abnormality on the left is the toe pressure which I am skeptical about. Clinical correlation recommended.
== END | disposition home or self-care (01) ==
LOC: RADUSWWP 12:18
PROVIDERS: ATTEND Internal Medicine
DX: R93.7 Abnormal findings on diagnostic imaging of other parts of musculoskeletal system (principal)
CPT/HCPCS: 93922

== ENCOUNTER → 2020-06-03 | Outpatient (CLI) | payer MEDICARE | END | disposition home or self-care (01) | LOC: LABWHC1 13:51 | PROVIDERS: ATTEND Internal Medicine | DX: Z20.828 Contact with and (suspected) exposure to other viral communicable diseases (principal) | CPT/HCPCS: U0003; C9803 ==